=== PATIENT | female | born 1990 | race Hispanic/Latino ===

== ENCOUNTER 2020-05-21 01:36 | Emergency (ER) | payer OTHER, SELFPAY ==
[2020-05-21 02:33] LABS: APPEARANCE,URINE Clear (CLEAR); BILIRUBIN,URINE Negative (NEGATIVE); COLOR,URINE Yellow (YELLOW); GLUCOSE, URINE (UA) Negative (NEGATIVE); HCG,QUAL RESULT POSITIVE (NEGATIVE); KETONES,URINE Negative (NEGATIVE); LEUKOCYTE ESTERASE ,URINE Negative (NEGATIVE); NITRATE,URINE Negative (NEGATIVE); OCCULT BLOOD,URINE Negative (NEGATIVE); PROTEIN,URINE Trace mg/dL (NEGATIVE)
[2020-05-21 02:40] LABS: AMPHET/METH SCREEN,URINE NEGATIVE (NEGATIVE); BARBITURATE SCREEN, URINE NEGATIVE (NEGATIVE); BENZODIAZEPINES SCREEN,URINE POSITIVE (NEGATIVE); CANNABINOID SCREEN,URINE NEGATIVE (NEGATIVE); COCAINE SCREEN,URINE NEGATIVE (NEGATIVE); OPIATE SCREEN,URINE POSITIVE (NEGATIVE); PHENCYCLIDINE SCREEN,URINE NEGATIVE (NEGATIVE)
[2020-05-21 03:48] LABS: BASOPHILS % (AUTO) 0.4 % (0.0-5.0); EOSINOPHILS % (AUTO) 0.7 % (0.0-8.0); HEMATOCRIT 37.5 % (36-48); MEAN CORPUSCULAR HEMOGLOBIN 27.6 pg (27.0-33.0); MEAN CORPUSCULAR HGB CONC 33.6 g/dL (32.0-36.0); MEAN CORPUSCULAR VOLUME 82.2 fL (79-99); MONOCYTES % (AUTO) 5.1 % (3.0-13.0); NEUTROPHILS % (AUTO) 72.2 % (40.0-77.0); PLATELET COUNT (AUTO) 365 K/uL (130-400); RED BLOOD CELL COUNT(AUTO) 4.56 MIL/uL (4.00-5.50); RED CELL DISTRIBUTION WIDTH 14.5 % (11.0-15.5); WHITE BLOOD COUNT (AUTO) 13.6 K/uL (4.8-10.8)
[2020-05-21 04:23] LABS: CARBON DIOXIDE 26 mmol/L (21-32); CHLORIDE 100 mmol/L (101-111); CREATININE 0.5 mg/dL (0.5-1.5); GLOMERULAR FILTR. RATE CALC 155 mL/min (>60); GLUCOSE,RANDOM 100 mg/dL (70-105); POTASSIUM 4.3 mmol/L (3.5-5.1); SODIUM SERUM 136 mmol/L (136-145); UREA NITROGEN, BLOOD 8 mg/dL (7-18)
[2020-05-21 04:33] LABS: ALANINE AMINOTRANSFERASE 33 U/L (12-78); ALBUMIN 3.8 g/dL (3.5-5.0); ASPARTATE AMINOTRANSFERASE 39 U/L (10-37); BILIRUBIN,DIRECT < 0.1 mg/dL (0.0-0.3); BILIRUBIN,TOTAL 0.8 mg/dL (0.2-1.0); CREATINE KINASE, TOTAL 99 U/L (21-232); HCG,QUANTITATIVE 278 mIU/mL (0-5); TOTAL PROTEIN, SERUM 8.5 g/dL (6.0-8.3)
[2020-05-21 04:37] LABS: LIPASE 43 U/L (114-286)
[2020-05-21] MEDS ORDERED: MAGNESIUM 2GM PREMIX 50ML 50 ML IV ONE (04:38)
== END 2020-05-21 06:03 | disposition home or self-care (01) ==
LOC: EDH 01:36
DX: O20.0 Threatened abortion (principal); O10.011 Pre-existing essential hypertension complicating pregnancy, first trimester; Z3A.01 Less than 8 weeks gestation of pregnancy
CPT/HCPCS: 36415; 76801; 80048; 80076; 80305; 81003; 81025; 82550; 83690; 84702; 85025; 86850; 86900; 86901; 96365; 99284; J3475

== ENCOUNTER 2020-07-16 16:46 | Observation (INO) | payer OTHER ==
[~2020-07-16] VITALS: Ht 160 cm; Wt 76.7 kg
[2020-07-16 17:54] LABS: BASOPHILS % (AUTO) 0.5 % (0.0-5.0); EOSINOPHILS % (AUTO) 1.2 % (0.0-8.0); HEMATOCRIT 34.8 % (36-48); LYMPHOCYTES % (AUTO) 19.5 % (21.0-51.0); MEAN CORPUSCULAR HEMOGLOBIN 28.5 pg (27.0-33.0); MEAN CORPUSCULAR HGB CONC 34.2 g/dL (32.0-36.0); MEAN CORPUSCULAR VOLUME 83.3 fL (79-99); MONOCYTES % (AUTO) 6.6 % (3.0-13.0); PLATELET COUNT (AUTO) 236 K/uL (130-400); RED BLOOD CELL COUNT(AUTO) 4.18 MIL/uL (4.00-5.50); RED CELL DISTRIBUTION WIDTH 13.5 % (11.0-15.5); WHITE BLOOD COUNT (AUTO) 8.4 K/uL (4.8-10.8)
[2020-07-16 18:09] LABS: CREATININE 0.6 mg/dL (0.5-1.5); POTASSIUM 3.6 mmol/L (3.5-5.1)
[2020-07-16 18:14] LABS: ALBUMIN 3.2 g/dL (3.5-5.0); BILIRUBIN,TOTAL 0.2 mg/dL (0.2-1.0); TOTAL PROTEIN, SERUM 7.3 g/dL (6.0-8.3)
[2020-07-16 18:39] LABS: APPEARANCE,URINE SL CLOUDY (CLEAR); BILIRUBIN,URINE NEGATIVE (NEGATIVE); COLOR,URINE YELLOW (YELLOW); GLUCOSE, URINE (UA) NEGATIVE (NEGATIVE); KETONES,URINE NEGATIVE (NEGATIVE); LEUKOCYTE ESTERASE ,URINE SMALL (NEGATIVE); NITRATE,URINE NEGATIVE (NEGATIVE); OCCULT BLOOD,URINE NEGATIVE (NEGATIVE); PROTEIN,URINE NEGATIVE (NEGATIVE); UROBILINOGEN,URINE 0.2 mg/dL (0.2-1.0)
[2020-07-16 18:46] LABS: BACTERIA,URINE Few /HPF (None Seen); MUCUS,URINE Few LPF (None Seen); RBC,URINE 0-1 /HPF (0-1); SQUAMOUS EPITHELIAL CELL,UR Moderate /HPF (0-2)
[2020-07-16] MEDS ORDERED: SODIUM CHLORIDE 0.9% 1000ML 1,000 ML IV SCH (19:22)
[2020-07-16] MEDS ORDERED: ONDANSETRON HCL 4 MG/2 ML VIAL IV PRN (19:30)
[2020-07-16] MEDS ORDERED: ACETAMINOPHEN 325 MG TAB PO PRN ×2 (19:30)
[2020-07-16] MEDS ORDERED: DIPHENHYDRAMINE HCL 25 MG CAPSULE PO PRN (19:30)
[2020-07-16] MEDS ORDERED: MAG HYDROX/AL HYDROX/SIMETH 60 ML, LIDOCAINE HCL 2% VISCOUS 60 ML, DIPHENHYDRAMINE HCL ... PO PRN ×3 (19:30)
[2020-07-16] MEDS ORDERED: HYDRALAZINE HCL 20 MG/ML VIAL IM PRN (19:30)
[2020-07-16] MEDS ORDERED: DiphenhydrAMINE HCL 50 MG/ML VIAL IV PRN (19:30)
[2020-07-16] MEDS ORDERED: LIDOCAINE HCL 2% VISCOUS 30 ML, MAG HYDROX/AL HYDROX/SIMETH 30 ML, BELLADONNA-PHENOBARB... PO PRN ×3 (19:30)
[2020-07-16] MEDS ORDERED: LABETALOL 20 MG/4 ML DISP.SYRIN IV PRN (19:30)
[2020-07-16] MEDS ORDERED: COMPOUND PO MISCELLANEOUS 1 EACH MISC MISC PRN (19:45)
[2020-07-16 22:29] LABS: AMPHET/METH SCREEN,URINE NEGATIVE (NEGATIVE); BARBITURATE SCREEN, URINE NEGATIVE (NEGATIVE); BENZODIAZEPINES SCREEN,URINE POSITIVE (NEGATIVE); CANNABINOID SCREEN,URINE NEGATIVE (NEGATIVE); COCAINE SCREEN,URINE NEGATIVE (NEGATIVE); OPIATE SCREEN,URINE POSITIVE (NEGATIVE); PHENCYCLIDINE SCREEN,URINE NEGATIVE (NEGATIVE)
[2020-07-16] MEDS ORDERED: MEPERIDINE-PF 25 MG/ML SYG ONE (23:41)
[2020-07-16] MEDS ORDERED: MEPERIDINE HCL/PF 25 MG/0.5 ML AMPUL IM ONE (23:45)
[2020-07-16] MEDS ORDERED: PROMETHAZINE HCL 25 MG/ML 1ML AMPULE IM ONE (23:45)
[2020-07-17 00:45] VITALS: BP 131/79
[2020-07-17 03:41] VITALS: BP 135/86
[2020-07-17] MEDS ORDERED: METHY500 PO (05:06)
[2020-07-17] MEDS ORDERED: LABE200T5 PO (05:09)
[2020-07-17] MEDS ORDERED: HYDR-4154 PO (05:11)
[2020-07-17] MEDS ORDERED: ONDA8TAB5 PO (05:18)
[2020-07-17] MEDS: LACTATED RINGERS 1000ML 1,000 ML IV SCH (05:24)
[2020-07-17 07:20] VITALS: BP 139/100
[2020-07-17] MEDS ORDERED: LABETALOL HCL 200 MG TABLET PO SCH (09:00)
--- NOTE | 2020-07-17 09:00 | NUR ---
HOSPITALIST GARCIA HOLLOWAY NP AT BEDSIDE TO ASSESS AND SPEAK WITH PT. NEW ORDER RECEIVED. OK TO DISCHARGE ONCE CLEARED BY LINER CHECKER.
[2020-07-17] MEDS ORDERED: HYDRALAZINE HCL 10 MG TABLET PO PRN (09:30)
[2020-07-17] MEDS ORDERED: ACETAMINOPHEN-CODEINE 300/30MG TAB PO PRN (09:45)
[2020-07-17] MEDS: HYDRALAZINE HCL 25 MG TABLET PO SCH ×2 (10:15→15:19)
[2020-07-17 10:43] VITALS: BP 146/107
--- NOTE | 2020-07-17 12:30 | NUR ---
PHYSICIAN ROUNDING DR. HANKINS AT BEDSIDE TO ASSESS AND TALK TO PT. MADE AWARE OF B/P OF 146/107. ORDERS RECEIVED TO CONTINUE TO DISCHARGE HOME AND PT IS TO FOLLOW UP IN OFFICE ON Monday07/22/2020.
--- NOTE | 2020-07-17 15:45 | NUR ---
PT GETTING READY AFTER DISCHARGE, PT STATED HAD SOME BLEEDING ON PAD. 7 INCH [place] NOTED ON PAD AT [address] HANKINS INFORMED AND PT GIVEN THE OPTION TO STAY FOR FURTHER MONITORING OR TO CONTINUE WITH DISCHARGE HOME ON STRICT BEDREST WITH PELVIC REST. INFORMED PT OF RISKS AND PT DECIDED TO STAY. PT THEN ASKED, "CAN SOMEONE DROP OFF MY MEDICATIONS? THEY'RE READY AT THE PHARMACY." PT INFORMED WE WILL DISPENSE HER BLOOD PRESSURE MEDICATIONS HERE ORDERED, SO NO NEED TO HAVE ANYTHING DROPPED OFF. PT THEN CONFESSED THAT SHE WAS PLANNING TO HAVE SOMEONE DROP OFF A TYLENOL #3 PRESCRIPTIONS SO SHE COULD TAKE THEM ON HER OWN. PT INSTRUCTED SHE WAS NOT GOING TO BE ALLOWED TO DO THAT, AND THAT ALL MEDICATIONS NEEDED TO BE PROPERLY DISPENSED BY HOSPITAL STAFF. PT AT THAT POINT STATED, "WELL THEN I'M JUST GOING TO GO HOME BECAUSE I NEED MY MEDS FOR MY PAIN OR ELSE I'M GOING TO START WITHDRAWING." PT INSTRUCTED ON RISKS TO . PT VERBALIZED UNDERSTANDING.
--- NOTE | 2020-07-17 16:35 | NUR ---
DISCHARGE PT LEFT UNIT VIA WHEELCHAIR, ACCOMPANIED BY FAMILY MEMBER. DENIED PAIN AND HAD NO COMPLAINTS AT THIS TIME. TRANSPORTED BY PERSONAL VEHICLE.
== END 2020-07-17 16:35 | disposition home or self-care (01) ==
LOC: EDH 16:46 → INTOOBSV 16:47 → OBSVTOIN 16:47 → EDHIP 16:47 → UNDOADMIN 19:22 → EDHIP 19:22 → WSH 07-17 00:45
PROVIDERS: ADMIT Internal Medicine; ATTEND Internal Medicine
DX: O16.1 Unspecified maternal hypertension, first trimester (principal); O26.891 Other specified pregnancy related conditions, first trimester; O26.851 Spotting complicating pregnancy, first trimester; R10.2 Pelvic and perineal pain; Z79.899 Other long term (current) drug therapy; Z3A.13 13 weeks gestation of pregnancy
CPT/HCPCS: 36415; 76801; 80053; 80305; 81001; 82550; 84156; 84484; 84702; 85025; 87088; 93005; 96360; 96361; 99285; G0378 ×9; J2175 ×2; J7120

== ENCOUNTER 2022-07-13 12:35 | Emergency (ER) | payer MEDICAID ==
[~2022-07-13] VITALS: Ht 160 cm; Wt 74.8 kg
[~2022-07-13 12:35] MED LIST: HYDR-4154 PO; LABE200T7 PO; METHY500 PO; ONDA8TAB5 PO
[2022-07-13] MEDS ORDERED: NIFEDIPINE 10 MG CAP PO ONE (13:00)
[2022-07-13 14:13] LABS: ALBUMIN 3.5 g/dL (3.5-5.0); CREATININE 0.7 mg/dL (0.5-1.5); POTASSIUM 4.1 mmol/L (3.5-5.1); TOTAL PROTEIN, SERUM 7.9 g/dL (6.0-8.3)
[2022-07-13] MEDS ORDERED: 0.9%NACL 1000ML 1,000 ML IV SCH (14:30)
[2022-07-13 14:37] LABS: APPEARANCE,URINE CLEAR (CLEAR); BILIRUBIN,URINE NEGATIVE (NEGATIVE); COLOR,URINE YELLOW (YELLOW); GLUCOSE, URINE (UA) NEGATIVE (NEGATIVE); KETONES,URINE NEGATIVE (NEGATIVE); LEUKOCYTE ESTERASE ,URINE MODERATE (NEGATIVE); NITRATE,URINE NEGATIVE (NEGATIVE); OCCULT BLOOD,URINE NEGATIVE (NEGATIVE); PH,URINE 5.5 (5.0-8.0); PROTEIN,URINE NEGATIVE (NEGATIVE); UROBILINOGEN,URINE 0.2 mg/dL (0.2-1.0)
[2022-07-13 14:49] LABS: RBC,URINE 0-1 /HPF (0-1)
[2022-07-13 14:50] LABS: BACTERIA,URINE Few /HPF (None Seen); MUCUS,URINE Rare LPF (None Seen); SQUAMOUS EPITHELIAL CELL,UR Moderate /HPF (0-2)
[2022-07-13] MEDS ORDERED: CEFTRIAXONE 1G VIAL IVP ONE (15:00)
[2022-07-13 15:06] LABS: B-TYPE NATRIURETIC PEPTIDE 7 pg/mL (0-100); BASOPHILS % (AUTO) 0.6 % (0.0-5.0); EOSINOPHILS % (AUTO) 2.7 % (0.0-8.0); HEMATOCRIT 32.8 % (36-48); LYMPHOCYTES % (AUTO) 25.7 % (21.0-51.0); MEAN CORPUSCULAR HEMOGLOBIN 25.2 pg (27.0-33.0); MEAN CORPUSCULAR HGB CONC 31.7 g/dL (32.0-36.0); MEAN CORPUSCULAR VOLUME 79.6 fL (79-99); MONOCYTES % (AUTO) 8.7 % (3.0-13.0); NEUTROPHILS % (AUTO) 62.1 % (40.0-77.0); PLATELET COUNT (AUTO) 300 K/uL (130-400); RED BLOOD CELL COUNT(AUTO) 4.12 MIL/uL (4.00-5.50); WHITE BLOOD COUNT (AUTO) 8.2 K/uL (4.8-10.8)
[2022-07-13] MEDS ORDERED: ACETAMINOPHEN 500 MG TABLET PO ONE (16:00)
[2022-07-13] MEDS ORDERED: LORAZEPAM 1 MG TABLET PO ONE (16:30)
[2022-07-13] MEDS ORDERED: [UNRECOGNIZED DRUG - OTHER] IV SCH (16:30)
[2022-07-13] MEDS ORDERED: PHENYTOIN 100MG (50MG/ML) INJ 100 MG/2 ML ML IV SCH (16:30)
[2022-07-13] MEDS ORDERED: PHENYTOIN IV SCH (16:30)
[2022-07-13] MEDS ORDERED: PHENYTOIN SODIUM 100 MG ERCAP PO SCH (17:00)
[2022-07-13] MEDS ORDERED: PHEN100C23 PO (17:29)
[2022-07-13] MEDS ORDERED: CEPH500B PO (17:29)
[2022-07-13 17:35] VITALS: BP 136/88
== END 2022-07-13 18:14 | disposition home or self-care (01) ==
LOC: EDH 12:35
DX: I95.1 Orthostatic hypotension (principal); E87.1 Hypo-osmolality and hyponatremia; N39.0 Urinary tract infection, site not specified; D64.9 Anemia, unspecified; G40.909 Epilepsy, unspecified, not intractable, without status epilepticus; I10 Essential (primary) hypertension; Z79.899 Other long term (current) drug therapy
CPT/HCPCS: 99285; 96374; 84484; 71045; 80053; 83880; 84703; 85025; 87088; 81001; 36415; 93005; J7030; J0696; J1165

== ENCOUNTER 2023-03-10 17:27 | Emergency (ER) | payer MEDICAID ==
[~2023-03-10] VITALS: Ht 157.5 cm; Wt 81.6 kg
[~2023-03-10 17:27] MED LIST changes: +ASPI-1197 PO; +CEPH500B PO; +LABE100T7 PO; +LORA0.5T83 PO; +NIFE-39 PO; +PHEN100C23 PO; +ZONI100C87 PO
[2023-03-10 17:58] LABS: APPEARANCE,URINE CLEAR (CLEAR); BILIRUBIN,URINE NEGATIVE (NEGATIVE); COLOR,URINE COLORLESS (YELLOW); GLUCOSE, URINE (UA) NEGATIVE (NEGATIVE); KETONES,URINE NEGATIVE (NEGATIVE); LEUKOCYTE ESTERASE ,URINE 75 Leu/uL (NEGATIVE); NITRATE,URINE NEGATIVE (NEGATIVE); OCCULT BLOOD,URINE NEGATIVE (NEGATIVE); PH,URINE 7.5 (5.0-8.0); PROTEIN,URINE NEGATIVE (NEGATIVE); UROBILINOGEN,URINE 0.2 mg/dL (0.2-1.0)
[2023-03-10 18:05] LABS: BACTERIA,URINE FEW /HPF (None Seen); MUCUS,URINE RARE LPF (None Seen); SQUAMOUS EPITHELIAL CELL,UR MOD /HPF (0-2)
[2023-03-10 18:21] LABS: BASOPHILS % (AUTO) 0.4 % (0.0-5.0); EOSINOPHILS % (AUTO) 0.6 % (0.0-8.0); HEMATOCRIT 38.6 % (36-48); MEAN CORPUSCULAR HEMOGLOBIN 25.5 pg (27.0-33.0); MEAN CORPUSCULAR HGB CONC 31.6 g/dL (32.0-36.0); MEAN CORPUSCULAR VOLUME 80.8 fL (79-99); MONOCYTES % (AUTO) 7.4 % (3.0-13.0); NEUTROPHILS % (AUTO) 70.3 % (40.0-77.0); PLATELET COUNT (AUTO) 294 K/uL (130-400); RED BLOOD CELL COUNT(AUTO) 4.78 MIL/uL (4.00-5.50); RED CELL DISTRIBUTION WIDTH 14.6 % (11.0-15.5); WHITE BLOOD COUNT (AUTO) 8.9 K/uL (4.8-10.8)
[2023-03-10 18:46] LABS: CREATININE 0.8 mg/dL (0.5-1.5); POTASSIUM 3.4 mmol/L (3.5-5.1)
[2023-03-10 18:51] LABS: ALBUMIN 4.4 g/dL (3.5-5.0); TOTAL PROTEIN, SERUM 9.2 g/dL (6.0-8.3)
[2023-03-10 19:18] VITALS: BP 154/86
[2023-03-10] MEDS ORDERED: CEPH500C2 PO (19:47)
[2023-03-10] MEDS ORDERED: CLON-353 PO (19:51)
[2023-03-10] MEDS ORDERED: ONDANSETRON 4MG INJ IVP ONE (20:00)
== END 2023-03-10 20:12 | disposition home or self-care (01) ==
LOC: EDH 17:27
DX: N39.0 Urinary tract infection, site not specified (principal); I10 Essential (primary) hypertension; Z79.82 Long term (current) use of aspirin; Z79.899 Other long term (current) drug therapy; Z98.890 Other specified postprocedural states
CPT/HCPCS: 99284; 96374; 80053; 85025; 87088; 81001; 36415; 93005; J2405

== ENCOUNTER 2023-03-27 10:46 | Emergency (ER) | payer MEDICAID ==
[~2023-03-27] VITALS: Ht 160 cm; Wt 74.8 kg
[~2023-03-27 10:46] MED LIST changes: +CEPH500C2 PO; +CLON-353 PO
[2023-03-27 11:53] LABS: BASOPHILS % (AUTO) 0.6 % (0.0-5.0); EOSINOPHILS % (AUTO) 1.8 % (0.0-8.0); HEMATOCRIT 33.9 % (36-48); LYMPHOCYTES % (AUTO) 25.3 % (21.0-51.0); MEAN CORPUSCULAR HEMOGLOBIN 25.7 pg (27.0-33.0); MEAN CORPUSCULAR HGB CONC 31.9 g/dL (32.0-36.0); MEAN CORPUSCULAR VOLUME 80.7 fL (79-99); MONOCYTES % (AUTO) 9.6 % (3.0-13.0); NEUTROPHILS % (AUTO) 62.6 % (40.0-77.0); PLATELET COUNT (AUTO) 304 K/uL (130-400); RED CELL DISTRIBUTION WIDTH 14.3 % (11.0-15.5); WHITE BLOOD COUNT (AUTO) 6.8 K/uL (4.8-10.8)
[2023-03-27] MEDS ORDERED: LABETALOL 20MG VIAL IV ONE (12:00)
[2023-03-27 12:05] LABS: CREATININE 0.7 mg/dL (0.5-1.5); POTASSIUM 3.3 mmol/L (3.5-5.1)
[2023-03-27 12:10] LABS: ALBUMIN 3.6 g/dL (3.5-5.0); TOTAL PROTEIN, SERUM 7.7 g/dL (6.0-8.3)
[2023-03-27] MEDS ORDERED: POTASSIUM BICARB/CIT AC 25 MEQ TABLET.EFF PO ONE (13:00)
[2023-03-27 13:55] LABS: APPEARANCE,URINE CLEAR (CLEAR); BILIRUBIN,URINE NEGATIVE (NEGATIVE); COLOR,URINE LIGHT-YELLOW (YELLOW); GLUCOSE, URINE (UA) NEGATIVE (NEGATIVE); KETONES,URINE NEGATIVE (NEGATIVE); LEUKOCYTE ESTERASE ,URINE NEGATIVE Leu/uL (NEGATIVE); NITRATE,URINE NEGATIVE (NEGATIVE); PH,URINE 6.5 (5.0-8.0); PROTEIN,URINE 20 mg/dL (NEGATIVE); UROBILINOGEN,URINE 0.2 mg/dL (0.2-1.0)
[2023-03-27 14:03] LABS: MUCUS,URINE MOD LPF (None Seen); RBC,URINE 0-1 /HPF (0-1); SQUAMOUS EPITHELIAL CELL,UR FEW /HPF (0-2)
[2023-03-27 15:14] VITALS: BP 108/69
== END 2023-03-27 15:30 | disposition home or self-care (01) ==
LOC: EDH 10:46
DX: I16.0 Hypertensive urgency (principal); I10 Essential (primary) hypertension; R10.9 Unspecified abdominal pain; Z79.899 Other long term (current) drug therapy; Z79.82 Long term (current) use of aspirin
CPT/HCPCS: 99285; 96374; 76770; 84484; 80053; 85025; 81001; 36415; 93005; J3490

== ENCOUNTER 2023-10-17 10:49 | Emergency (ER) | payer MEDICAID ==
[~2023-10-17] VITALS: Ht 160 cm; Wt 70.8 kg
[2023-10-17 12:58] LABS: BASOPHILS # (AUTO) 0.05 K/uL (0.00-0.20); BASOPHILS % (AUTO) 0.5 % (0.0-5.0); EOSINOPHILS # (AUTO) 0.12 K/uL (0.00-0.70); EOSINOPHILS % (AUTO) 1.2 % (0.0-8.0); HEMATOCRIT 30.6 % (36-48); IMMATURE GRANULOCYTE ABSOLUTE 0.04 K/uL (0-1); LYMPHOCYTES # (AUTO) 3.1 K/uL (1.0-4.8); LYMPHOCYTES % (AUTO) 30.4 % (21.0-51.0); MEAN CORPUSCULAR HEMOGLOBIN 27.5 pg (27.0-33.0); MEAN CORPUSCULAR HGB CONC 33.7 g/dL (32.0-36.0); MEAN CORPUSCULAR VOLUME 81.6 fL (79-99); MONOCYTES # (AUTO) 0.7 K/uL (0.1-1.0); MONOCYTES % (AUTO) 6.8 % (3.0-13.0); NEUTROPHILS # (AUTO) 6.1 K/uL (1.8-7.7); NEUTROPHILS % (AUTO) 60.7 % (40.0-77.0); PLATELET COUNT (AUTO) 332 K/uL (130-400); RED BLOOD CELL COUNT(AUTO) 3.75 MIL/uL (4.00-5.50); RED CELL DISTRIBUTION WIDTH 13.7 % (11.0-15.5); WHITE BLOOD COUNT (AUTO) 10.1 K/uL (4.8-10.8)
[2023-10-17] MEDS ORDERED: ONDANSETRON 4MG INJ IVP ONE (13:30)
[2023-10-17] MEDS ORDERED: MORPHINE 4 MG SYG IVP ONE (13:30)
[2023-10-17 13:39] LABS: ALBUMIN 3.6 g/dL (3.5-5.0); BILIRUBIN,TOTAL 0.3 mg/dL (0.2-1.0); CREATININE 0.6 mg/dL (0.5-1.5); TOTAL PROTEIN, SERUM 7.6 g/dL (6.0-8.3)
[2023-10-17] MEDS ORDERED: KCL 20 MEQ ERTAB PO ONE (14:00)
[2023-10-17] MEDS ORDERED: LABETALOL 20MG VIAL IV ONE (14:00)
[2023-10-17] MEDS ORDERED: POTA-364 PO (14:03)
[2023-10-17] MEDS ORDERED: POTASSIUM BICARB/CIT AC 25 MEQ TABLET.EFF ONE (14:52)
[2023-10-17] MEDS ORDERED: POTASSIUM BICARB/CIT AC 25 MEQ TABLET.EFF PO ONE (15:00)
[2023-10-17 15:28] VITALS: BP 121/90; PULSE 77; RESP 16; O2SAT 99
== END 2023-10-17 15:34 | disposition home or self-care (01) ==
LOC: EDH 10:49
DX: O20.0 Threatened abortion (principal); O26.891 Other specified pregnancy related conditions, first trimester; E87.6 Hypokalemia; R10.2 Pelvic and perineal pain; I10 Essential (primary) hypertension; Z3A.09 9 weeks gestation of pregnancy; Z79.899 Other long term (current) drug therapy
CPT/HCPCS: 99285; 96374; 76801; 96375; 84484; 80053; 84702; 85025; 86850; 86900; 86901; 36415; 93005; J2405; J2270; J3490

== ENCOUNTER 2024-03-12 11:58 | Emergency (ER) | payer MEDICAID ==
[~2024-03-12] VITALS: Ht 160 cm; Wt 69.4 kg
[~2024-03-12 11:58] MED LIST changes: -HYDR-4154 PO; +HYDR50TA37 PO; +POTA-364 PO
[2024-03-12 12:38] LABS: BASOPHILS # (AUTO) 0.05 K/uL (0.00-0.20); BASOPHILS % (AUTO) 0.5 % (0.0-5.0); EOSINOPHILS # (AUTO) 0.04 K/uL (0.00-0.70); EOSINOPHILS % (AUTO) 0.4 % (0.0-8.0); HEMATOCRIT 33.5 % (36-48); IMMATURE GRANULOCYTE ABSOLUTE 0.03 K/uL (0-1); LYMPHOCYTES # (AUTO) 1.4 K/uL (1.0-4.8); MEAN CORPUSCULAR HEMOGLOBIN 22.3 pg (27.0-33.0); MEAN CORPUSCULAR HGB CONC 29.6 g/dL (32.0-36.0); MEAN CORPUSCULAR VOLUME 75.6 fL (79-99); MONOCYTES # (AUTO) 0.7 K/uL (0.1-1.0); MONOCYTES % (AUTO) 7.5 % (3.0-13.0); NEUTROPHILS # (AUTO) 7.2 K/uL (1.8-7.7); NEUTROPHILS % (AUTO) 76.3 % (40.0-77.0); PLATELET COUNT (AUTO) 323 K/uL (130-400); RED BLOOD CELL COUNT(AUTO) 4.43 MIL/uL (4.00-5.50); RED CELL DISTRIBUTION WIDTH 18.8 % (11.0-15.5); WHITE BLOOD COUNT (AUTO) 9.5 K/uL (4.8-10.8)
[2024-03-12 12:48] LABS: INR <= 0.93 (0.85-1.15); PROTHROMBIN TIME 10.8 SEC (9.6-11.6)
[2024-03-12 12:53] LABS: ALBUMIN 4.1 g/dL (3.5-5.0); BILIRUBIN,TOTAL 0.5 mg/dL (0.2-1.0); CREATININE 0.6 mg/dL (0.5-1.0); TOTAL PROTEIN, SERUM 8.7 g/dL (6.0-8.3)
[2024-03-12 12:54] LABS: POTASSIUM 2.9 mmol/L (3.5-5.1)
[2024-03-12 13:04] LABS: B-TYPE NATRIURETIC PEPTIDE 28 pg/mL (0-100)
[2024-03-12] MEDS: ACETAMINOPHEN 325 MG TAB PO ONE (15:06)
[2024-03-12 15:36] LABS: BILIRUBIN,URINE NEGATIVE (NEGATIVE); COLOR,URINE LIGHT-YELLOW (YELLOW); GLUCOSE, URINE (UA) NEGATIVE (NEGATIVE); KETONES,URINE NEGATIVE (NEGATIVE); LEUKOCYTE ESTERASE ,URINE 25 Leu/uL (NEGATIVE); NITRATE,URINE NEGATIVE (NEGATIVE); OCCULT BLOOD,URINE LARGE (NEGATIVE); PROTEIN,URINE 30 mg/dL (NEGATIVE); UROBILINOGEN,URINE 0.2 mg/dL (0.2-1.0)
[2024-03-12] MEDS: LORAZEPAM 2 MG/ML 1 ML VIAL IVP ONE (15:37)
[2024-03-12 15:43] LABS: AMPHET/METH SCREEN,URINE NEGATIVE (NEGATIVE); BARBITURATE SCREEN, URINE NEGATIVE (NEGATIVE); BENZODIAZEPINES SCREEN,URINE POSITIVE (NEGATIVE); CANNABINOID SCREEN,URINE NEGATIVE (NEGATIVE); COCAINE SCREEN,URINE POSITIVE (NEGATIVE); OPIATE SCREEN,URINE NEGATIVE (NEGATIVE); PHENCYCLIDINE SCREEN,URINE NEGATIVE (NEGATIVE)
[2024-03-12 15:48] LABS: ADD UA MICROSCOPIC YES; APPEARANCE,URINE HAZY (CLEAR)
[2024-03-12 15:52] LABS: BACTERIA,URINE FEW /HPF (None Seen); MUCUS,URINE MOD LPF (None Seen); SQUAMOUS EPITHELIAL CELL,UR MANY /HPF (0-2)
[2024-03-12] MEDS ORDERED: ZONI100C87 PO (17:42)
[2024-03-12] MEDS ORDERED: CEPH500B PO (17:42)
[2024-03-12] MEDS: CEFTRIAXONE 2GM VIAL IVPB ONE (17:48)
[2024-03-12] MEDS: NITROGLYCERIN 1GM OINT 1 INCH/1GM TD ONE (17:48)
[2024-03-12] MEDS: POTASSIUM BICARB/CIT AC 25 MEQ TABLET.EFF PO ONE (17:48)
[2024-03-12] MEDS: ZONISAMIDE 100 MG CAP PO ONE (18:10)
[2024-03-12 19:43] VITALS: BP 140/89; PULSE 76; RESP 18; O2SAT 100
== END 2024-03-12 18:38 | disposition home or self-care (01) ==
LOC: EDH 11:58
DX: G40.909 Epilepsy, unspecified, not intractable, without status epilepticus (principal); N39.0 Urinary tract infection, site not specified; E87.6 Hypokalemia; F19.10 Other psychoactive substance abuse, uncomplicated; I10 Essential (primary) hypertension; Z79.82 Long term (current) use of aspirin; Z79.84 Long term (current) use of oral hypoglycemic drugs; Z79.899 Other long term (current) drug therapy; Z98.890 Other specified postprocedural states
CPT/HCPCS: 99285; 96365; 70450; 71045; 96375; 84484; 80053; 83880; 80305; 85025; 85610; 87088; 81025; 36415; 93005; 81001; J0696; J2060

== ENCOUNTER 2024-04-21 13:30 | Emergency (ER) | payer MEDICAID ==
[~2024-04-21] VITALS: Ht 160 cm; Wt 66.2 kg
[2024-04-21] MEDS: 0.9%NACL 1000ML 1,000 ML IV ONE (14:27)
[2024-04-21 14:32] LABS: BASOPHILS # (AUTO) 0.08 K/uL (0.00-0.20); BASOPHILS % (AUTO) 0.6 % (0.0-5.0); EOSINOPHILS # (AUTO) 0.23 K/uL (0.00-0.70); EOSINOPHILS % (AUTO) 1.7 % (0.0-8.0); HEMATOCRIT 36.6 % (36-48); IMMATURE GRANULOCYTE ABSOLUTE 0.07 K/uL (0-1); LYMPHOCYTES # (AUTO) 1.8 K/uL (1.0-4.8); MEAN CORPUSCULAR HGB CONC 30.1 g/dL (32.0-36.0); MEAN CORPUSCULAR VOLUME 79.9 fL (79-99); MONOCYTES # (AUTO) 1.2 K/uL (0.1-1.0); MONOCYTES % (AUTO) 9.1 % (3.0-13.0); NEUTROPHILS # (AUTO) 10.2 K/uL (1.8-7.7); NEUTROPHILS % (AUTO) 75.1 % (40.0-77.0); PLATELET COUNT (AUTO) 295 K/uL (130-400); RED BLOOD CELL COUNT(AUTO) 4.58 MIL/uL (4.00-5.50); RED CELL DISTRIBUTION WIDTH 16.8 % (11.0-15.5); WHITE BLOOD COUNT (AUTO) 13.6 K/uL (4.8-10.8)
[2024-04-21 14:43] LABS: CREATININE 0.7 mg/dL (0.5-1.0); POTASSIUM 3.4 mmol/L (3.5-5.1)
[2024-04-21 14:47] LABS: ALBUMIN 3.7 g/dL (3.5-5.0); BILIRUBIN,TOTAL 0.2 mg/dL (0.2-1.0)
[2024-04-21 15:04] LABS: ADD UA MICROSCOPIC YES; APPEARANCE,URINE CLEAR (CLEAR); BILIRUBIN,URINE NEGATIVE (NEGATIVE); COLOR,URINE YELLOW (YELLOW); GLUCOSE, URINE (UA) NEGATIVE (NEGATIVE); KETONES,URINE NEGATIVE (NEGATIVE); LEUKOCYTE ESTERASE ,URINE 500 Leu/uL (NEGATIVE); NITRATE,URINE NEGATIVE (NEGATIVE); OCCULT BLOOD,URINE NEGATIVE (NEGATIVE); PH,URINE 5.5 (5.0-8.0); PROTEIN,URINE 30 mg/dL (NEGATIVE); UROBILINOGEN,URINE 0.2 mg/dL (0.2-1.0)
[2024-04-21 15:13] LABS: BACTERIA,URINE FEW /HPF (None Seen); MUCUS,URINE RARE LPF (None Seen); SQUAMOUS EPITHELIAL CELL,UR MOD /HPF (0-2)
[2024-04-21 15:18] LABS: HCG,QUALITATIVE URINE NEGATIVE (NEGATIVE)
[2024-04-21] MEDS: POTASSIUM BICARB/CIT AC 25 MEQ TABLET.EFF PO ONE (15:20)
[2024-04-21 15:22] LABS: COVID19 (SARS ANTIGEN RAPID) PRESUMPTIVE NEGATIVE (NEGATIVE)
[2024-04-21 15:23] LABS: INFLUENZA TYPE A Negative For Type A (NEGATIVE); INFLUENZA TYPE B Negative For Type B (NEGATIVE)
[2024-04-21] MEDS: CEFTRIAXONE 1G VIAL IVPB ONE (15:54)
[2024-04-21] MEDS: KETOROLAC 30MG VIAL (30MG/ML) IVP ONE (16:23)
[2024-04-21] MEDS ORDERED: SULF1TAB42 PO (17:03)
[2024-04-21] MEDS ORDERED: BENZ-39 PO (17:03)
[2024-04-21 17:10] VITALS: BP 141/95; PULSE 90; RESP 18; O2SAT 98
== END 2024-04-21 17:15 | disposition home or self-care (01) ==
LOC: EDH 13:30
DX: J06.9 Acute upper respiratory infection, unspecified (principal); E87.6 Hypokalemia; N39.0 Urinary tract infection, site not specified; R05.9 Cough, unspecified; R07.89 Other chest pain; I10 Essential (primary) hypertension; G40.909 Epilepsy, unspecified, not intractable, without status epilepticus; Z20.822 Contact with and (suspected) exposure to COVID-19
CPT/HCPCS: 99285; 96365; 71045; 96361; 96375; 87426; 82550; 83735; 84484; 80053; 85025; 87088; 87804 ×2; 81001; 81025; 36415; 93005; J7030; J0696; J1885